=== PATIENT | male | born 1975 | race Caucasian/White ===

== ENCOUNTER 2017-02-25 23:28 | Emergency (ER) | payer BC ==
--- NOTE | 2017-02-25 23:39 | EDM.PDOC ---
ED HPI GENERAL MEDICAL PROBLEM - General Chief Complaint: Neurological Problem Stated Complaint: POSSIBLE STROKE OR SEIZURE Time Seen by Provider: 02/25/17 23:39 Source of Information: Reports: Patient - History of Present Illness INITIAL COMMENTS - FREE TEXT/NARRATIVE: HISTORY AND PHYSICAL: History of present illness: [] Patient presents by private vehicle with seizure-like activity Initially his called an ambulance, he declined ambulance and came as above Patient and his and went to sleep at approximately 9:30 tonight one to 2 hours later patient developed contracted appearance and was moaning with altered mental status consistent with seizure-like activity, ambulance arrived shortly after he was alert but somewhat disoriented consistent with a post ictal state. He refused to travel by ambulance and had his bring him in for evaluation On arrival he is ANO x3 [place] Coma Scale is 15 no fever nausea vomiting diarrhea constipation chest pain shortness breath headache dizziness or palpitation no bowel or urine symptoms No history of seizure disorder, he does have history of a Chiari malformation Review of systems: As per history of present illness and below otherwise all systems reviewed and negative. Past medical history: As per history of present illness and as reviewed below otherwise noncontributory. Surgical history: As per history of present illness and as reviewed below otherwise noncontributory. Social history: No reported history of drug or alcohol abuse. Family history: As per history of present illness and as reviewed below otherwise noncontributory. Physical exam: HEENT: Atraumatic, normocephalic, pupils reactive, negative for conjunctival pallor or scleral icterus, mucous membranes moist, throat clear, neck supple, nontender, trachea midline. Lungs: Clear to auscultation, breath sounds equal bilaterally, chest nontender. Heart: S1S2, regular, negative for clicks, rubs, or JVD. Abdomen: Soft, nondistended, nontender. Negative for masses or hepatosplenomegaly. Negative for costovertebral tenderness. Pelvis: Stable nontender. Genitourinary: Deferred. Rectal: Deferred. Extremities: Atraumatic, negative for cords or calf pain. Neurovascular unremarkable. Neuro: Awake, alert, oriented. Cranial nerves II through XII unremarkable. Cerebellum unremarkable. Motor and sensory unremarkable throughout. Exam nonfocal. Diagnostics: [] Lab as below EKG Chest one view Head CT no contrast Therapeutics: [] Liter normal saline bolus Ativan 1 mg IV provided for prophylaxis no active seizure while in the emergency room Impression: [] Seizure-like activity Definitive disposition and diagnosis as appropriate pending reevaluation and review of above. - Related Data Allergies Allergy/AdvReac Type Severity Reaction Status Date / Time No Known Allergies Allergy Verified 02/25/17 23:36 Home Meds: Home Meds Gabapentin [Neurontin] 300 mg PO BID 02/25/17 [History] ED ROS GENERAL - Review of Systems Review Of Systems: ROS reveals no pertinent complaints other than HPI. ED EXAM, GENERAL - Physical Exam Exam: See Below Course - Vital Signs Last Recorded V/S: Last Vital Signs Temp 36.5 C 02/26/17 02:21 Pulse 79 02/26/17 02:21 Resp 16 02/26/17 02:21 BP 128/86 02/26/17 02:21 Pulse Ox 95 02/26/17 02:21 - Orders/Labs/Meds Orders: Active Orders 24 hr Category Date Time Status EKG Documentation Completion [RC] STAT Care 02/25/17 23:37 Active Chest 1V Frontal [CR] Stat Exams 02/25/17 23:37 Taken Head wo Cont [CT] Stat Exams 02/25/17 23:37 Taken Sodium Chloride 0.9% [Normal Saline] 1,000 ml Med 02/26/17 01:40 Active IV STAT Medication Orders Sodium Chloride (Normal Saline) 1,000 mls @ 999 mls/hr IV STAT ONE Stop: 02/26/17 02:40 Last Admin: 02/26/17 01:41 Dose: 999 mls/hr Labs: Laboratory Tests 02/25/17 02/25/17 02/25/17 Range/Units 23:44 23:44 23:44 WBC 6.82 (4.0-11.0) K/uL RBC 4.67 (4.50-5.90) M/uL Hgb 15.0 (13.0-17.0) g/dL Hct 42.4 (38.0-50.0) % MCV 90.8 (80.0-98.0) fL MCH 32.1 H (27.0-32.0) pg MCHC 35.4 (31.0-37.0) g/dL RDW Std Deviation 41.3 (28.0-62.0) fl RDW Coeff of Vipin 13 (11.0-15.0) % Plt Count 283 (150-400) K/uL MPV 8.70 (7.40-12.00) fL Neut % (Auto) 43.2 L (48.0-80.0) % Lymph % (Auto) 45.5 H (16.0-40.0) % [place] % (Auto) 7.0 (0.0-15.0) % Eos % (Auto) 4.0 (0.0-7.0) % Baso % (Auto) 0.3 (0.0-1.5) % Neut # (Auto) 3.0 (1.4-5.7) K/uL Lymph # (Auto) 3.1 H (0.6-2.4) K/uL [place] # (Auto) 0.5 (0.0-0.8) K/uL Eos # (Auto) 0.3 (0.0-0.7) K/uL Baso # (Auto) 0.0 (0.0-0.1) K/uL Nucleated RBC % 0.0 /100WBC Nucleated RBCs # 0 K/uL Sodium 140 (136-146) mmol/L Potassium 3.7 (3.5-5.1) mmol/L Chloride 103 (98-110) mmol/L Carbon Dioxide 21 (21-31) mmol/L BUN 12 (6.0-23.0) mg/dL Creatinine 0.9 (0.6-1.5) mg/dL Est Cr Clr Drug Dosing 105.83 mL/min Estimated GFR (MDRD) > 60.0 ml/min Glucose 106 (60-110) mg/dL Calcium 9.2 (8.8-10.8) mg/dL Magnesium 1.7 (1.5-2.3) mEq/L Total Bilirubin 0.5 (0.1-1.5) mg/dL AST 19 (5-40) IU/L ALT 23 (8-54) IU/L Alkaline Phosphatase 59 (40-150) Creatine Kinase 120 (9-236) IU/L CK-MB (CK-2) 1.2 (0-6.6) ng/ml Troponin I < 0.10 (0.0-0.29) NG/ML Total Protein 6.5 (6.0-8.0) g/dL Albumin 4.5 (3.5-5.0) g/dL Globulin 2.0 (2.0-3.5) g/dL Albumin/Globulin Ratio 2.3 (1.3-2.8) TSH 3rd Generation 2.60 (0.47-5.0) uIU/mL Prolactin 37 H (1-23) ng/mL Urine Color Urine Appearance Urine pH (5.0-8.0) Ur Specific [place] (1.001-1.035) Urine Protein (NEGATIVE) mg/dL Urine Glucose (UA) (NEGATIVE) mg/dL Urine Ketones (NEGATIVE) mg/dL Urine Occult Blood (NEGATIVE) Urine Nitrite (NEGATIVE) Urine Bilirubin (NEGATIVE) Urine Urobilinogen (<2.0) EU/dL Ur Leukocyte Esterase (NEGATIVE) Urine RBC (0-2/HPF) Urine WBC (0-5/HPF) Ur Epithelial Cells (NONE-FEW) Urine Bacteria (NEGATIVE) Urine Opiates Screen (NEGATIVE) Ur Oxycodone Screen (NEGATIVE) Urine Methadone Screen (NEGATIVE) Ur Barbiturates Screen (NEGATIVE) Ur Phencyclidine Scrn (NEGATIVE) Ur Amphetamine Screen (NEGATIVE) U Methamphetamines Scrn (NEGATIVE) U Benzodiazepines Scrn (NEGATIVE) U Cocaine Metab Screen (NEGATIVE) U Marijuana (THC) Screen (NEGATIVE) Ethyl Alcohol < 10.0 mg/dL 02/26/17 02/26/17 Range/Units 02:20 02:20 WBC (4.0-11.0) K/uL RBC (4.50-5.90) M/uL Hgb (13.0-17.0) g/dL Hct (38.0-50.0) % MCV (80.0-98.0) fL MCH (27.0-32.0) pg MCHC (31.0-37.0) g/dL RDW Std Deviation (28.0-62.0) fl RDW Coeff of Vipin (11.0-15.0) % Plt Count (150-400) K/uL MPV (7.40-12.00) fL Neut % (Auto) (48.0-80.0) % Lymph % (Auto) (16.0-40.0) % [place] % (Auto) (0.0-15.0) % Eos % (Auto) (0.0-7.0) % Baso % (Auto) (0.0-1.5) % Neut # (Auto) (1.4-5.7) K/uL Lymph # (Auto) (0.6-2.4) K/uL [place] # (Auto) (0.0-0.8) K/uL Eos # (Auto) (0.0-0.7) K/uL Baso # (Auto) (0.0-0.1) K/uL Nucleated RBC % /100WBC Nucleated RBCs # K/uL Sodium (136-146) mmol/L Potassium (3.5-5.1) mmol/L Chloride (98-110) mmol/L Carbon Dioxide (21-31) mmol/L BUN (6.0-23.0) mg/dL Creatinine (0.6-1.5) mg/dL Est Cr Clr Drug Dosing mL/min Estimated GFR (MDRD) ml/min Glucose (60-110) mg/dL Calcium (8.8-10.8) mg/dL Magnesium (1.5-2.3) mEq/L Total Bilirubin (0.1-1.5) mg/dL AST (5-40) IU/L ALT (8-54) IU/L Alkaline Phosphatase (40-150) Creatine Kinase (9-236) IU/L CK-MB (CK-2) (0-6.6) ng/ml Troponin I (0.0-0.29) NG/ML Total Protein (6.0-8.0) g/dL Albumin (3.5-5.0) g/dL Globulin (2.0-3.5) g/dL Albumin/Globulin Ratio (1.3-2.8) TSH 3rd Generation (0.47-5.0) uIU/mL Prolactin (1-23) ng/mL Urine Color YELLOW Urine Appearance CLEAR Urine pH 5.5 (5.0-8.0) Ur Specific [place] 1.025 (1.001-1.035) Urine Protein NEGATIVE (NEGATIVE) mg/dL Urine Glucose (UA) NEGATIVE (NEGATIVE) mg/dL Urine Ketones 15 H (NEGATIVE) mg/dL Urine Occult Blood TRACE-INTACT (NEGATIVE) Urine Nitrite NEGATIVE (NEGATIVE) Urine Bilirubin SMALL H (NEGATIVE) Urine Urobilinogen 0.2 (<2.0) EU/dL Ur Leukocyte Esterase NEGATIVE (NEGATIVE) Urine RBC 0-1 (0-2/HPF) Urine WBC 0-1 (0-5/HPF) Ur Epithelial Cells RARE (NONE-FEW) Urine Bacteria FEW (NEGATIVE) Urine Opiates Screen NEGATIVE (NEGATIVE) Ur Oxycodone Screen NEGATIVE (NEGATIVE) Urine Methadone Screen NEGATIVE (NEGATIVE) Ur Barbiturates Screen NEGATIVE (NEGATIVE) Ur Phencyclidine Scrn NEGATIVE (NEGATIVE) Ur Amphetamine Screen NEGATIVE (NEGATIVE) U Methamphetamines Scrn NEGATIVE (NEGATIVE) U Benzodiazepines Scrn NEGATIVE (NEGATIVE) U Cocaine Metab Screen NEGATIVE (NEGATIVE) U Marijuana (THC) Screen NEGATIVE (NEGATIVE) Ethyl Alcohol mg/dL Meds: Medications Generic Name Dose Route Start Last Admin Trade Name Freq PRN Reason Stop Dose Admin Sodium Chloride 1,000 mls @ 999 mls/hr 02/26/17 01:40 02/26/17 01:41 Normal Saline IV 02/26/17 02:40 999 mls/hr STAT ONE Administration Discontinued Medications Generic Name Dose Route Start Last Admin Trade Name Freq PRN Reason Stop Dose Admin Diazepam 5 mg 02/25/17 23:38 02/26/17 00:06 Valium IVPUSH 02/25/17 23:39 Not Given ONETIME ONE Sodium Chloride 1,000 mls @ 999 mls/hr 02/26/17 00:36 02/26/17 00:53 Normal Saline IV 02/26/17 01:36 999 mls/hr STAT ONE Administration Ketorolac Tromethamine 30 mg 02/26/17 02:21 02/26/17 02:25 Toradol IVPUSH 02/26/17 02:22 30 mg ONETIME ONE Administration Lorazepam 1 mg 02/25/17 23:43 02/25/17 23:50 Ativan IVPUSH 02/25/17 23:44 1 mg ONETIME ONE Administration Departure - Departure Time of Disposition: 02:41 Disposition: Home, Self-Care 01 Condition: good Clinical Impression: Seizure-like activity - Discharge Information Forms: ED Department Discharge Additional Instructions: Return if symptoms persist or worsen Followup with primary care in 2 weeks sooner as needed Neurology consult referral will be provided from the [facility] [address] [place] [id number] The following information is given to patients seen in the emergency department who are being discharged to home. This information is to outline your options for follow-up care. We provide all patients seen in our emergency department with a follow-up referral. The need for follow-up, as well as the timing and circumstances, are variable depending upon the specifics of your emergency department visit. If you don't have a primary care physician on staff, we will provide you with a referral. We always advise you to contact your personal physician following an emergency department visit to inform them of the circumstance of the visit and for follow-up with them and/or the need for any referrals to a consulting specialist. The emergency department will also refer you to a specialist when appropriate. This referral assures that you have the opportunity for follow-up care with a specialist. All of these measure are taken in an effort to provide you with optimal care, which includes your follow-up. Under all circumstances we always encourage you to contact your private physician who remains a resource for coordinating your care. When calling for follow-up care, please make the office aware that this follow-up is from your recent emergency room visit. If for any reason you are refused follow-up, please contact the [facility] emergency department at and asked to speak to the emergency department charge nurse. - My Orders Last 24 Hours: My Active Orders 02/25/17 23:37 EKG Documentation Completion [RC] STAT Chest 1V Frontal [CR] Stat Head wo Cont [CT] Stat 02/26/17 01:40 Sodium Chloride 0.9% [Normal Saline] 1,000 ml IV STAT - Assessment/Plan Last 24 Hours: My Active Orders 02/25/17 23:37 EKG Documentation Completion [RC] STAT Chest 1V Frontal [CR] Stat Head wo Cont [CT] Stat 02/26/17 01:40 Sodium Chloride 0.9% [Normal Saline] 1,000 ml IV STAT
[2017-02-25] MEDS ORDERED: LORazepam 2 MG/ML MDV IVPUSH ONE (23:43)
[2017-02-26 00:33] LABS: CHLORIDE,CL 103 mmol/L (98-110); SODIUM,NA 140 mmol/L (136-146)
[2017-02-26] MEDS ORDERED: Sodium Chloride 0.9% 1,000 ML IV ONE ×2 (00:36→01:40)
[2017-02-26] MEDS ORDERED: Ketorolac 30 MG/ML SDV IVPUSH ONE (02:21)
[2017-02-26 03:04] VITALS: BP 120/70
--- NOTE | 2017-02-26 10:49 | CT ---
EXAM DATE: 02/25/17 PATIENT'S AGE: 41 Patient: MARA CHEUNG Facility: [place], [place] Site . Site : 1975 Study: CT Head WO CONT [id number] 12:13:51 AM Ordering Physician: Doctor Roth Final Report: INDICATION: SEIZURE AT 2250HRS TONIGHT FOR [address] HEAD WITHOUT CONTRAST TECHNIQUE: Multiple axial CT images were performed through the head without intravenous contrast administration. COMPARISON: 10/10/[address] FINDINGS: No acute intracranial hemorrhage is identified. No extra-axial collections are evident and there is no mass effect or midline shift. Ventricles are normal in size and configuration. Brain parenchyma appears normal with unremarkable gallo-white differentiation. Osseous structures are within normal limits and no fractures are seen. Included portions of the paranasal sinuses and mastoid air cells are normally aerated. IMPRESSION: Normal non-contrast head CT. JESSICA CALDERON MD [employer] Dictated by: Lincoln Calderon MD @ 02/26/2017 00:24:37 (Electronic Signature) Report Signed by Proxy. [facility]
--- NOTE | 2017-02-26 10:50 | CR ---
EXAM DATE: 02/25/17 PATIENT'S AGE: 41 Patient: MARA CHEUNG Facility: [place], [place] Site . Site : 1975 Study: XRay Chest [id number] 12:14:22 AM Ordering Physician: Doctor Roth Final Report: INDICATION: SEIZURE AT 2250HRS FOR APPROX. 1 MINUTE TECHNIQUE: Chest 1 view COMPARISON: None FINDINGS: Cardiovascular and mediastinum: Heart size and vasculature are normal in caliber and appearance. Mediastinum is within normal limits. Lungs and pleural space: No focal consolidation. No sign of pleural effusion. No pneumothorax. Bones and soft tissues: No significant findings. IMPRESSION: No acute cardiopulmonary disease. Dictated by Nagi Gutierrez MD @ 02/26/2017 12:20:09 AM Dictated by: Nagi Gutierrez MD @ 02/26/2017 00:20:30 (Electronic Signature) Report Signed by Proxy. [facility] SYSTEMJulissa
== END 2017-02-26 03:00 | disposition home or self-care (01) ==
LOC: MW.ED 23:28
DX: R56.9 Unspecified convulsions (principal)
CPT/HCPCS: 36415; 70450; 71010; 80053; 80305; 81001; 82550; 82553; 83735; 84146; 84443; 84484; 85025; 93005; 96361; 96374; 96375; 99285; G0480; J1885; J2060; J7040; 99284

== ENCOUNTER 2017-06-15 11:30 | Observation (INO) | payer BC ==
[2017-06-15] MEDS ORDERED: Sodium Chloride 0.9% 2.5 ML Syringe FLUSH PRN (11:43)
[2017-06-15] MEDS ORDERED: Famotidine 20 MG/2 ML SDV IVPUSH ONE (11:43)
[2017-06-15] MEDS ORDERED: Sodium Chloride 0.9% 10 ML Syringe FLUSH PRN (11:43)
[2017-06-15] MEDS ORDERED: Nitroglycerin 0.4 MG Tab.SL SL ONE (11:43)
[2017-06-15] MEDS ORDERED: Aspirin 81 MG Tab.Chew PO ONE (11:43)
[2017-06-15] MEDS ORDERED: Adenosine 6 MG/2 ML SDV IVPUSH ONE ×2 (11:47→13:27)
[2017-06-15] MEDS ORDERED: Adenosine 6 MG/2 ML SDV ONE (11:48)
[2017-06-15] MEDS ORDERED: Diltiazem 25 MG/5 ML SDV ONE (11:55)
[2017-06-15] MEDS ORDERED: LORazepam 2 MG/ML MDV ONE (11:59)
[2017-06-15] MEDS ORDERED: LORazepam 2 MG/ML MDV IVPUSH ONE (12:01)
--- NOTE | 2017-06-15 12:07 | EDM.PDOC ---
ED HPI GENERAL MEDICAL PROBLEM - General Chief Complaint: Chest Pain Stated Complaint: CHEST PAIN Time Seen by Provider: 06/15/17 12:03 Source of Information: Reports: Patient, Family History Limitations: Reports: No Limitations - History of Present Illness INITIAL COMMENTS - FREE TEXT/NARRATIVE: HISTORY AND PHYSICAL: [] 42-year-old male presenting with midsternal chest pain. 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 Review of Systems: As per history of present illness and below otherwise all systems reviewed and negative. Past medical history: As per history of present illness and as reviewed below otherwise noncontributory. Surgical history: As per history of present illness and as reviewed below otherwise noncontributory. Social history: No reported history of drug or alcohol abuse. Family history: As per history of present illness and as reviewed below otherwise noncontributory. Physical exam: Alert and oriented male answering questions appropriately somewhat short of breath. Initial EKG 79 normal sinus rhythm. Heart rate had increased showing a SVT with heart rate of 202. HEENT: Atraumatic, normocehpalic, pupils reactive, negative for conjunctival pallor or scleral icterus, mucous membranes moist, throat clear, neck supple, nontender, trachea midline. Lungs: Clear to auscultation, breath sounds equal bilaterally, chest non tender. Heart: S1S2, regular, negative for clicks, rubs, or JVD. Abdomen: Soft, nondistended, nontender. Negative for masses or hepatossplenmegaly. Negative for costovertebral tenderness. Pelvis: Stable nontender. Genitourinary: Deferred. Rectal: Deferred Extremities: Atraumatic, negative for cords or calf pain. Neurovascular unremarkable. Neuro: Awake, alert, oriented. Cranial nerves II through XII unremarkable. Cerebellum unremarkable. Motor and sensory unremarkable throughout. Exam nonfocal. Dr. Fowler has been notified and has examined the patient as well adenosine was given at 6 mL sinus pause and rate decreased to 80s 90s sinus rhythm. Then immediately spit back up to an SVT at 190. Additional adenosine 12 mL given. Slight sinus pause then returned to SVT 190s. Cardizem given IV 25 mg decreased to 85-90 sinus rhythm. Ativan 1 mg IV I discussed this patient with Dr. Emigdio Melgar who is in agreement for observation on telemetry. Diagnostics: [CBC CMP amylase lipase EKG chest x-ray] Therapeutics: [Adenosine 2, Cardizem 25 mg IV,] Impression: [SVT Chest pain] Plan: [Referred for observation] Definitive disposition and diagnosis as appropriate pending reevaluation and review of above. Onset: Today, Sudden Duration: Minutes: (45) Location: Reports: Chest Anterior Chest Pain Score (Numeric/FACES): 5 - Related Data Allergies Allergy/AdvReac Type Severity Reaction Status Date / Time No Known Allergies Allergy Verified 06/15/17 11:33 Home Meds: Home Meds Gabapentin [Neurontin] 600 mg PO TID 02/25/17 [History] Colesevelam [Welchol] PO BID 06/15/17 [History] Past Medical History - Past Health History Medical/Surgical History: Denies Medical/Surgical History HEENT History: Reports: None Respiratory History: Reports: Other (See Below) Other Respiratory History: insomnia Gastrointestinal History: Reports: Diverticulosis, Hemorrhoids Neurological History: Reports: Neuropathy, Peripheral - Past Surgical History HEENT Surgical History: Reports: None GI Surgical History: Reports: Hernia, Abdominal Social & Family History - Family History Family Medical History: Noncontributory - Tobacco Use Smoking Status *Q: Current Every Day Smoker Years of Tobacco use: 22 Packs/Tins Daily: 0.5 Tobacco Use Comment: on and off smoking - Caffeine Use Caffeine Use: Reports: Coffee Caffeine Use Comment: 3 cups daily - Recreational Drug Use Recreational Drug Use: No ED ROS GENERAL - Review of Systems Review Of Systems: ROS reveals no pertinent complaints other than HPI. ED EXAM, GENERAL - Physical Exam Exam: See Below (See dictation) Course - Vital Signs Last Recorded V/S: Last Vital Signs Temp 36.5 C 06/15/17 11:33 Pulse 208 H 06/15/17 11:48 Resp 16 06/15/17 11:33 BP 116/77 06/15/17 12:28 Pulse Ox 98 06/15/17 11:33 - Orders/Labs/Meds Orders: Active Orders 24 hr Category Date Time Status Cardiac Monitoring [RC] . DIRECTED Care 06/15/17 11:43 Active EKG 12 Lead [EKG Documentation Completion] [RC] STAT Care 06/15/17 12:06 Active EKG 12 Lead [EKG Documentation Completion] [RC] STAT Care 06/15/17 12:06 Active EKG Documentation Completion [RC] STAT Care 06/15/17 11:43 Active Oxygen Therapy [RC] ASDIRECTED Care 06/15/17 11:43 Active Pulse Oximetry [RC] ASDIRECTED Care 06/15/17 11:43 Active MAGNESIUM [CHEM] Stat Lab 06/15/17 12:39 Ordered T4 FREE [CHEM] Stat Lab 06/15/17 12:39 Ordered TSH [CHEM] Stat Lab 06/15/17 12:39 Ordered UA W/MICROSCOPIC [URIN] Stat Lab 06/15/17 12:35 Ordered Diltiazem [Cardizem CD] Med 06/15/17 12:39 Once 240 mg PO ONETIME ONE Sodium Chloride 0.9% [Saline Flush] Med 06/15/17 11:43 Active 10 ml FLUSH ASDIRECTED PRN Sodium Chloride 0.9% [Saline Flush] Med 06/15/17 11:43 Active 2.5 ml FLUSH ASDIRECTED PRN Saline Lock Insert [OM.PC] Stat Oth 06/15/17 11:43 Ordered Medication Orders Diltiazem HCl (Cardizem Cd) 240 mg PO ONETIME ONE Stop: 06/15/17 12:40 Sodium Chloride (Saline Flush) 10 ml FLUSH ASDIRECTED PRN PRN Reason: Keep Vein Open Last Admin: 06/15/17 12:27 Dose: 10 ml Sodium Chloride (Saline Flush) 2.5 ml FLUSH ASDIRECTED PRN PRN Reason: Keep Vein Open Last Admin: 06/15/17 12:27 Dose: 2.5 ml Labs: Laboratory Tests 06/15/17 06/15/17 06/15/17 Range/Units 11:48 11:48 11:48 WBC 8.64 (4.0-11.0) K/uL RBC 5.17 (4.50-5.90) M/uL Hgb 16.5 (13.0-17.0) g/dL Hct 46.5 (38.0-50.0) % MCV 89.9 (80.0-98.0) fL MCH 31.9 (27.0-32.0) pg MCHC 35.5 (31.0-37.0) g/dL RDW Std Deviation 43.9 (28.0-62.0) fl RDW Coeff of Vipin 13 (11.0-15.0) % Plt Count 268 (150-400) K/uL MPV 8.70 (7.40-12.00) fL Neut % (Auto) 61.1 (48.0-80.0) % Lymph % (Auto) 27.8 (16.0-40.0) % Churchill % (Auto) 9.0 (0.0-15.0) % Eos % (Auto) 1.9 (0.0-7.0) % Baso % (Auto) 0.2 (0.0-1.5) % Neut # (Auto) 5.3 (1.4-5.7) K/uL Lymph # (Auto) 2.4 (0.6-2.4) K/uL Churchill # (Auto) 0.8 (0.0-0.8) K/uL Eos # (Auto) 0.2 (0.0-0.7) K/uL Baso # (Auto) 0.0 (0.0-0.1) K/uL Nucleated RBC % 0.0 /100WBC Nucleated RBCs # 0 K/uL INR 0.92 (0.86-1.11) Sodium 141 (136-146) mmol/L Potassium 4.3 (3.5-5.1) mmol/L Chloride 107 (98-110) mmol/L Carbon Dioxide 22 (21-31) mmol/L BUN 19 (6.0-23.0) mg/dL Creatinine 0.9 (0.6-1.5) mg/dL Est Cr Clr Drug Dosing 104.74 mL/min Estimated GFR (MDRD) > 60.0 ml/min Glucose 96 (60-110) mg/dL Calcium 9.8 (8.8-10.8) mg/dL Total Bilirubin 0.4 (0.1-1.5) mg/dL AST 22 (5-40) IU/L ALT 44 (8-54) IU/L Alkaline Phosphatase 94 (40-150) Troponin I (0.0-0.29) NG/ML Total Protein 7.2 (6.0-8.0) g/dL Albumin 4.5 (3.5-5.0) g/dL Globulin 2.7 (2.0-3.5) g/dL Albumin/Globulin Ratio 1.7 (1.3-2.8) Amylase 65 (10-90) U/L Lipase 74 (7-80) U/L 06/15/17 Range/Units 11:48 WBC (4.0-11.0) K/uL RBC (4.50-5.90) M/uL Hgb (13.0-17.0) g/dL Hct (38.0-50.0) % MCV (80.0-98.0) fL MCH (27.0-32.0) pg MCHC (31.0-37.0) g/dL RDW Std Deviation (28.0-62.0) fl RDW Coeff of Vipin (11.0-15.0) % Plt Count (150-400) K/uL MPV (7.40-12.00) fL Neut % (Auto) (48.0-80.0) % Lymph % (Auto) (16.0-40.0) % Churchill % (Auto) (0.0-15.0) % Eos % (Auto) (0.0-7.0) % Baso % (Auto) (0.0-1.5) % Neut # (Auto) (1.4-5.7) K/uL Lymph # (Auto) (0.6-2.4) K/uL Churchill # (Auto) (0.0-0.8) K/uL Eos # (Auto) (0.0-0.7) K/uL Baso # (Auto) (0.0-0.1) K/uL Nucleated RBC % /100WBC Nucleated RBCs # K/uL INR (0.86-1.11) Sodium (136-146) mmol/L Potassium (3.5-5.1) mmol/L Chloride (98-110) mmol/L Carbon Dioxide (21-31) mmol/L BUN (6.0-23.0) mg/dL Creatinine (0.6-1.5) mg/dL Est Cr Clr Drug Dosing mL/min Estimated GFR (MDRD) ml/min Glucose (60-110) mg/dL Calcium (8.8-10.8) mg/dL Total Bilirubin (0.1-1.5) mg/dL AST (5-40) IU/L ALT (8-54) IU/L Alkaline Phosphatase (40-150) Troponin I < 0.10 (0.0-0.29) NG/ML Total Protein (6.0-8.0) g/dL Albumin (3.5-5.0) g/dL Globulin (2.0-3.5) g/dL Albumin/Globulin Ratio (1.3-2.8) Amylase (10-90) U/L Lipase (7-80) U/L Meds: Medications Generic Name Dose Route Start Last Admin Trade Name Freq PRN Reason Stop Dose Admin Diltiazem HCl 240 mg 06/15/17 12:39 Cardizem Cd PO 06/15/17 12:40 ONETIME ONE Sodium Chloride 10 ml 06/15/17 11:43 06/15/17 12:27 Saline Flush FLUSH 10 ml ASDIRECTED PRN Administration Keep Vein Open Sodium Chloride 2.5 ml 06/15/17 11:43 06/15/17 12:27 Saline Flush FLUSH 2.5 ml ASDIRECTED PRN Administration Keep Vein Open Discontinued Medications Generic Name Dose Route Start Last Admin Trade Name Freq PRN Reason Stop Dose Admin Adenosine 6 mg 06/15/17 11:47 06/15/17 12:28 Adenocard IVPUSH 06/15/17 11:48 6 mg NOW ONE Administration Adenosine Confirm 06/15/17 11:48 06/15/17 12:29 Adenocard Administered 06/15/17 11:49 12 mg Dose Administration 18 mg .ROUTE .STK-MED ONE Aspirin 324 mg 06/15/17 11:43 06/15/17 12:24 Aspirin PO 06/15/17 11:44 324 mg ONETIME ONE Administration Diltiazem HCl Confirm 06/15/17 11:55 06/15/17 12:29 Diltiazem Administered 06/15/17 11:56 25 mg Dose Administration 25 mg .ROUTE .STK-MED ONE Famotidine 20 mg 06/15/17 11:43 06/15/17 12:25 Pepcid IVPUSH 06/15/17 11:44 20 mg ONETIME ONE Administration Lorazepam Confirm 06/15/17 11:59 06/15/17 12:02 Ativan Administered 06/15/17 12:00 Not Given Dose 2 mg .ROUTE .STK-MED ONE Lorazepam 1 mg 06/15/17 12:01 06/15/17 12:30 Ativan IVPUSH 06/15/17 12:02 1 mg ONETIME ONE Administration Nitroglycerin 0.4 mg 06/15/17 11:43 06/15/17 12:28 Nitrostat SL 06/15/17 11:44 Not Given ONETIME ONE Departure - Departure Time of Disposition: 12:41 Disposition: Refer to Observation Condition: Good Clinical Impression: SVT (supraventricular tachycardia) Forms: ED Department Discharge - My Orders Last 24 Hours: My Active Orders 06/15/17 11:43 Cardiac Monitoring [RC] . DIRECTED EKG Documentation Completion [RC] STAT Oxygen Therapy [RC] ASDIRECTED Pulse Oximetry [RC] ASDIRECTED Sodium Chloride 0.9% [Saline Flush] 10 ml FLUSH ASDIRECTED PRN Sodium Chloride 0.9% [Saline Flush] 2.5 ml FLUSH ASDIRECTED PRN Saline Lock Insert [OM.PC] Stat 06/15/17 12:06 EKG 12 Lead [EKG Documentation Completion] [RC] STAT EKG 12 Lead [EKG Documentation Completion] [RC] STAT 06/15/17 12:35 UA W/MICROSCOPIC [URIN] Stat 06/15/17 12:39 MAGNESIUM [CHEM] Stat T4 FREE [CHEM] Stat TSH [CHEM] Stat - Assessment/Plan Last 24 Hours: My Active Orders 06/15/17 11:43 Cardiac Monitoring [RC] . DIRECTED EKG Documentation Completion [RC] STAT Oxygen Therapy [RC] ASDIRECTED Pulse Oximetry [RC] ASDIRECTED Sodium Chloride 0.9% [Saline Flush] 10 ml FLUSH ASDIRECTED PRN Sodium Chloride 0.9% [Saline Flush] 2.5 ml FLUSH ASDIRECTED PRN Saline Lock Insert [OM.PC] Stat 06/15/17 12:06 EKG 12 Lead [EKG Documentation Completion] [RC] STAT EKG 12 Lead [EKG Documentation Completion] [RC] STAT 06/15/17 12:35 UA W/MICROSCOPIC [URIN] Stat 06/15/17 12:39 MAGNESIUM [CHEM] Stat T4 FREE [CHEM] Stat TSH [CHEM] Stat
[2017-06-15 12:19] LABS: CHLORIDE,CL 107 mmol/L (98-110); SODIUM,NA 141 mmol/L (136-146)
--- NOTE | 2017-06-15 12:30 | CR ---
EXAMINATION: Portable chest radiograph. HISTORY: Chest pain. FINDINGS: The trachea is midline. The cardiomediastinal silhouette is within normal limits. No pulmonary infilt rates, effusions or pneumothorax. Osseous structures appear unremarkable. IMPRESSION: No acute cardiopulmonary process.
[2017-06-15] MEDS: Diltiazem 120 MG Cap.CD PO ONE ×2 (13:25→14:25)
[2017-06-15] MEDS ORDERED: Diltiazem 120 MG Cap.CD PO ONE (14:20)
[2017-06-15] MEDS ORDERED: Diltiazem 25 MG/5 ML SDV IVPUSH ONE (14:46)
[2017-06-15] MEDS ORDERED: Acetaminophen 325 MG Tab PO PRN (16:04)
[2017-06-15] MEDS ORDERED: Ondansetron 4 MG Tab.DIS PO PRN (16:04)
[2017-06-15] MEDS ORDERED: Morphine 2 MG/ML Syringe IVPUSH PRN (16:04)
[2017-06-15] MEDS ORDERED: Temazepam 15 MG Cap PO PRN (16:04)
[2017-06-15] MEDS ORDERED: Bisacodyl 5 MG Tab PO PRN (16:04)
--- NOTE | 2017-06-15 16:04 | PCM.HP ---
H&P History of Present Illness - General Date of Service: 06/15/17 Admit Problem/Dx: Admission Diagnosis/Problem Admission Diagnosis/Problem Chest pain Source of Information: Patient, Provider - History of Present Illness Initial Comments - Free Text/Narative: He presented to the ED with complaint of palpitations intermittently associated with chest pressure radiating to arms as well as dyspnea. He reports that this happens frequently but is usually of shorter duration such that he had not sought medical attention previously. Anterior Chest Pain Score (Numeric/FACES): 5 - Related Data Allergies/Adverse Reactions: Allergies Allergy/AdvReac Type Severity Reaction Status Date / Time No Known Allergies Allergy Verified 06/15/17 11:33 Home Medications: Home Meds Gabapentin [Neurontin] 600 mg PO TID 02/25/17 [History] Colesevelam [Welchol] PO BID 06/15/17 [History] Past Medical History - Past Health History Medical/Surgical History: Denies Medical/Surgical History HEENT History: Reports: None Cardiovascular History: Reports: High Cholesterol. Denies: CT Respiratory History: Reports: Other (See Below). Denies: COPD Other Respiratory History: insomnia Gastrointestinal History: Reports: Diverticulosis, Hemorrhoids Neurological History: Reports: Neuropathy, Peripheral Psychiatric History: Reports: Other (See Below) Other Psychiatric History: Hx: Insomnia - Infectious Disease History Infectious Disease History: Reports: Chicken Pox - Past Surgical History HEENT Surgical History: Reports: None GI Surgical History: Reports: Hernia, Abdominal, Other (See Below) (bowel resection for diverticulitis) Social & Family History - Family History Family Medical History: Noncontributory - Tobacco Use Smoking Status *Q: Current Every Day Smoker Years of Tobacco use: 22 Packs/Tins Daily: 0.5 Tobacco Use Comment: on and off smoking - Caffeine Use Caffeine Use: Reports: Coffee Caffeine Use Comment: 3 cups daily - Alcohol Use Alcohol Use Comment: he drinks one or two beers about one or two times per month. - Recreational Drug Use Recreational Drug Use: No H&P Review of Systems - Review of Systems: Review Of Systems: See Below General: Denies: Fever, Chills HEENT: Denies: Ear Pain Pulmonary: Reports: Shortness of Breath, Hemoptysis. Denies: Cough Gastrointestinal: Denies: Abdominal Pain, Black Stool, Bloody Stool, Hematemesis , Hematochezia, Melena Genitourinary: Denies: Dysuria, Hematuria Exam - Exam Exam: See Below - Vital Signs Vital Signs: Last Vital Signs Temp 98 F 06/15/17 13:49 Pulse 115 H 06/15/17 14:36 Resp 18 06/15/17 13:49 BP 115/64 06/15/17 14:36 Pulse Ox 98 06/15/17 13:49 Weight: 91.308 kg - Exam General: Alert, Oriented, Cooperative HEENT: Mucosa Moist & [place] Neck: Supple, Trachea Midline Lungs: Clear to Auscultation, Normal Respiratory Effort Cardiovascular: Regular Rate, Regular Rhythm, Tachycardia GI/Abdominal Exam: Soft, Non-Tender (Male) Exam: Deferred Rectal (Males) Exam: Deferred Neurological: Cranial Nerves Intact, Normal Speech Neuro Extensive - Mental Status: Normal Mood/Affect Psychiatric: No: Agitated - Patient Data Result Diagrams: 06/15/17 11:48 06/15/17 11:48 Imaging Impressions Last 24 hrs: EKG: SVT follow up EKG: sinus tachycardia *Q Meaningful Use (ADM) - VTE *Q VTE Criteria *Q: - Stroke *Q Stroke Criteria *Q: - AMI *Q AMI Criteria *Q: - Problem List (1) SVT (supraventricular tachycardia) SNOMED Code(s): 9722290 ICD Code: I47.1 - SUPRAVENTRICULAR TACHYCARDIA Status: Acute Current Visit: Yes Problem List Initiated/Reviewed/Updated: Yes Orders Last 24hrs: Active Orders 24 hr Category Date Time Status Patient Status [ADT] Stat ADT 06/15/17 13:04 Active Medication Orders Sodium Chloride (Saline Flush) 10 ml FLUSH ASDIRECTED PRN PRN Reason: Keep Vein Open Last Admin: 06/15/17 12:27 Dose: 10 ml Sodium Chloride (Saline Flush) 2.5 ml FLUSH ASDIRECTED PRN PRN Reason: Keep Vein Open Last Admin: 06/15/17 12:27 Dose: 2.5 ml Assessment/Plan Comment:: admit to observation see orders Emigdio Melgar MD
[2017-06-15] MEDS ORDERED: Nicotine 21 MG/24 Hr Patch TRDERM SCH (18:30)
[2017-06-15] MEDS: Nicotine 21 MG/24 Hr Patch TRDERM SCH (19:12)
[2017-06-15] MEDS: Metoprolol Tartrate 5 MG/5 ML SDV IVPUSH PRN (22:26)
[2017-06-15] MEDS: Gabapentin 300 MG Cap PO SCH (22:26)
[2017-06-16 05:50] LABS: CHLORIDE,CL 107 mmol/L (98-110); SODIUM,NA 141 mmol/L (136-146)
[2017-06-16] MEDS: Gabapentin 300 MG Cap PO SCH ×3 (06:36→21:08)
[2017-06-16] MEDS ORDERED: Diltiazem 120 MG Cap.CD PO SCH (09:00)
[2017-06-16] MEDS: Nicotine 21 MG/24 Hr Patch TRDERM SCH (09:20)
[2017-06-16] MEDS: Enoxaparin 40 MG/0.4 ML Syringe SUBCUT SCH (09:28)
--- NOTE | 2017-06-16 14:30 | PCM.PN ---
- General Info Date of Service: 06/16/17 Subjective Update: He feels better. He reports that he has a prior history of seizures and his last one was several years ago. He also has a history of chiari malformation. - Patient Data Vitals - Most Recent: Last Vital Signs Temp 99.0 F 06/16/17 11:40 Pulse 63 06/16/17 11:40 Resp 18 06/16/17 11:40 BP 117/72 06/16/17 11:40 Pulse Ox 93 L 06/16/17 11:40 Weight - Most Recent: 91.308 kg I&O - Last 24 Hours: Intake & Output 06/15/17 06/16/17 06/16/17 22:59 06:59 14:59 Intake Total 700 480 Balance 700 480 Lab Results Last 24 Hours: Laboratory Results - last 24 hr 06/15/17 06/16/17 06/16/17 Range/Units 18:27 00:15 05:10 Sodium 141 (136-146) mmol/L Potassium 4.5 (3.5-5.1) mmol/L Chloride 107 (98-110) mmol/L Carbon Dioxide 25 (21-31) mmol/L BUN 18 (6.0-23.0) mg/dL Creatinine 0.8 (0.6-1.5) mg/dL Est Cr Clr Drug Dosing 117.83 mL/min Estimated GFR (MDRD) > 60.0 ml/min Glucose 96 (60-110) mg/dL Calcium 9.5 (8.8-10.8) mg/dL Troponin I 0.19 0.11 (0.0-0.29) NG/ML Med Orders - Current: Current Medications Acetaminophen (Tylenol) 650 mg PO Q4H PRN PRN Reason: Pain (Mild 1-3)/fever Bisacodyl (Dulcolax) 5 mg PO DAILY PRN PRN Reason: Constipation Diltiazem HCl (Cardizem Cd) 240 mg PO DAILY [facility] Last Admin: 06/16/17 09:21 Dose: 240 mg Enoxaparin Sodium (Lovenox) 40 mg SUBCUT DAILY [facility] Last Admin: 06/16/17 09:28 Dose: 40 mg Gabapentin (Neurontin) 600 mg PO TID [facility] Last Admin: 06/16/17 13:54 Dose: 600 mg Metoprolol Tartrate (Lopressor) 5 mg IVPUSH Q4H PRN PRN Reason: Other Last Admin: 06/15/17 22:26 Dose: 5 mg Morphine Sulfate (Morphine) 2 mg IVPUSH Q2H PRN PRN Reason: Pain (severe 7-10) Stop: 06/16/17 16:06 Nicotine (Habitrol) 21 mg TRDERM DAILY [facility] Last Admin: 06/16/17 09:20 Dose: 21 mg Ondansetron HCl (Zofran Odt) 4 mg PO Q4H PRN PRN Reason: nausea, able to take PO Sodium Chloride (Saline Flush) 10 ml FLUSH ASDIRECTED PRN PRN Reason: Keep Vein Open Last Admin: 06/15/17 12:27 Dose: 10 ml Sodium Chloride (Saline Flush) 2.5 ml FLUSH ASDIRECTED PRN PRN Reason: Keep Vein Open Last Admin: 06/15/17 12:27 Dose: 2.5 ml Temazepam (Restoril) 15 mg PO BEDTIME PRN PRN Reason: Sleep Discontinued Medications Adenosine (Adenocard) 6 mg IVPUSH NOW ONE Stop: 06/15/17 11:48 Last Admin: 06/15/17 12:28 Dose: 6 mg Adenosine (Adenocard) Confirm Administered Dose 18 mg .ROUTE .STK-MED ONE Stop: 06/15/17 11:49 Last Admin: 06/15/17 12:29 Dose: 12 mg Adenosine (Adenocard) 12 mg IVPUSH NOW ONE Stop: 06/15/17 13:28 Last Admin: 06/15/17 13:28 Dose: 12 mg Aspirin (Aspirin) 324 mg PO ONETIME ONE Stop: 06/15/17 11:44 Last Admin: 06/15/17 12:24 Dose: 324 mg Diltiazem HCl (Diltiazem) Confirm Administered Dose 25 mg .ROUTE .STK-MED ONE Stop: 06/15/17 11:56 Last Admin: 06/15/17 12:29 Dose: 25 mg Diltiazem HCl (Cardizem Cd) 240 mg PO ONETIME ONE Stop: 06/15/17 12:40 Last Admin: 06/15/17 14:25 Dose: Not Given Diltiazem HCl (Cardizem Cd) 240 mg PO ONETIME ONE Stop: 06/15/17 14:21 Last Admin: 06/15/17 14:36 Dose: 240 mg Diltiazem HCl (Diltiazem) 25 mg IVPUSH ONETIME ONE Stop: 06/15/17 14:47 Last Admin: 06/15/17 14:48 Dose: 25 mg Famotidine (Pepcid) 20 mg IVPUSH ONETIME ONE Stop: 06/15/17 11:44 Last Admin: 06/15/17 12:25 Dose: 20 mg Lorazepam (Ativan) Confirm Administered Dose 2 mg .ROUTE .STK-MED ONE Stop: 06/15/17 12:00 Last Admin: 06/15/17 12:02 Dose: Not Given Lorazepam (Ativan) 1 mg IVPUSH ONETIME ONE Stop: 06/15/17 12:02 Last Admin: 06/15/17 12:30 Dose: 1 mg Nicotine (Habitrol) 21 mg TRDERM DAILY [facility] Last Admin: 06/15/17 20:19 Dose: Not Given Nitroglycerin (Nitrostat) 0.4 mg SL ONETIME ONE Stop: 06/15/17 11:44 Last Admin: 06/15/17 12:28 Dose: Not Given - Exam General: Alert, Oriented, Cooperative Neck: Trachea Midline Lungs: Clear to Auscultation, Normal Respiratory Effort Cardiovascular: Regular Rate, Regular Rhythm - Problem List & Annotations (1) SVT (supraventricular tachycardia) SNOMED Code(s): 7477510 Code(s): I47.1 - SUPRAVENTRICULAR TACHYCARDIA Status: Acute Current Visit : Yes - Problem List Review Problem List Initiated/Reviewed/Updated: Yes - My Orders Last 24 Hours: My Active Orders 06/15/17 13:43 Telemetry Monitoring [Cardiac Monitoring] [RC] Q8H 06/15/17 16:04 Acetaminophen [Tylenol] 650 mg PO Q4H PRN Bisacodyl [Dulcolax] 5 mg PO DAILY PRN Metoprolol Tartrate [Lopressor] 5 mg IVPUSH Q4H PRN Morphine 2 mg IVPUSH Q2H PRN Ondansetron [Zofran ODT] 4 mg PO Q4H PRN Temazepam [Restoril] 15 mg PO BEDTIME PRN Resuscitation Status Routine 06/15/17 16:05 Oxygen Therapy [RC] PRN VTE/DVT Education [RC] PER UNIT ROUTINE Vital Signs [RC] Q4H 06/15/17 19:00 Nicotine [Habitrol] 21 mg TRDERM DAILY 06/15/17 22:00 Gabapentin [Neurontin] 600 mg PO TID 06/15/17 Dinner Regular Diet [DIET] 06/16/17 07:00 Echo Comp wo Cont [US] Urgent 06/16/17 09:00 Diltiazem [Cardizem CD] 240 mg PO DAILY Enoxaparin [Lovenox] 40 mg SUBCUT DAILY 06/16/17 12:58 EKG 12 Lead [EKG Documentation Completion] [RC] ROUTINE - Plan Plan:: admit to observation see orders Emigdio Melgar MD 06/16/2017 He has had periods of sinus tachycardia and has some brief episodes of Mobitz type two second degree heart block on the monitor noted last night apparently this was asymtomatic EKG toda shows NSR He has an appointment planned as an outpatient with DR Nayak, neurology Impression I am concerned about a possible tachy/ low syndomre Will seek cardiology consultation echo results pending Emigdio Melgar MD
--- NOTE | 2017-06-16 15:51 | PCM.SN ---
- Free Text/Narrative Note: I spoke with Dr Costa, cardiology, who kindly agreed to consult on this patient. Emigdio Melgar MD
--- NOTE | 2017-06-16 18:13 | PCM.DCSUM1 ---
Discharge Summary - Hospital Course Brief History: He was admitted with SVT . - Discharge Data Discharge Date: 06/16/17 Discharge Disposition: Home, Self-Care 01 Condition: Fair - Discharge Diagnosis/Problem(s) (1) SVT (supraventricular tachycardia) SNOMED Code(s): 5884967 ICD Code: I47.1 - SUPRAVENTRICULAR TACHYCARDIA Status: Acute Current Visit: Yes - Patient Summary/Data Consults: Consultations 06/16/17 14:30 Consult to Physician [CONS] Urgent Hospital Course: He was treated initially in the ED with adenocard. This reportedly was not helpful. He was successfully treated with cardizem IV. HE was started on Cardizem CD. He converted to sinus rhythm. However, on monitoring it was noted that he had periods of atrial flutter with variable block. He has symptoms of palpitations with the atrial flutter even when the ventricular rate is controlled. Dr Costa, cardiology, saw the patient. Echocardiogram was performed but final written results are pending at discharge. Dr Costa spoke with me about the patient and recommended discharge on cardizem and aspirin. I have had a lengthy discussion with the patient and his regarding his diagnosis. Impression: atrial flutter history of seizure disorder history of chiari malformation discharge home off work until Thursday follow up is planned with DR Costa , Dr Graff and with DR Bowman. Emigdio Melgar MD - Discharge Plan Home Medications: Home Meds Gabapentin [Neurontin] 600 mg PO TID 02/25/17 [History] Colesevelam [Welchol] PO BID 06/15/17 [History] Forms: ED Department Discharge Referrals: Mena Bowman MD [Physician] - 07/16/17 2:00 pm Katelyn Abbasi DO [Primary Care Provider] - - Patient Data Vitals - Most Recent: Last Vital Signs Temp 98.2 F 06/16/17 16:01 Pulse 73 06/16/17 16:01 Resp 20 06/16/17 16:01 BP 119/68 06/16/17 16:01 Pulse Ox 95 06/16/17 16:01 Weight - Most Recent: 91.308 kg I&O - Last 24 hours: Intake & Output 06/16/17 06/16/17 06/16/17 06:59 14:59 22:59 Intake Total 700 480 Balance 700 480 Lab Results - Last 24 hrs: Laboratory Results - last 24 hr 06/15/17 06/16/17 06/16/17 Range/Units 18:27 00:15 05:10 Sodium 141 (136-146) mmol/L Potassium 4.5 (3.5-5.1) mmol/L Chloride 107 (98-110) mmol/L Carbon Dioxide 25 (21-31) mmol/L BUN 18 (6.0-23.0) mg/dL Creatinine 0.8 (0.6-1.5) mg/dL Est Cr Clr Drug Dosing 117.83 mL/min Estimated GFR (MDRD) > 60.0 ml/min Glucose 96 (60-110) mg/dL Calcium 9.5 (8.8-10.8) mg/dL Troponin I 0.19 0.11 (0.0-0.29) NG/ML Med Orders - Current: Current Medications Acetaminophen (Tylenol) 650 mg PO Q4H PRN PRN Reason: Pain (Mild 1-3)/fever Bisacodyl (Dulcolax) 5 mg PO DAILY PRN PRN Reason: Constipation Diltiazem HCl (Cardizem Cd) 240 mg PO DAILY [facility] Last Admin: 06/16/17 09:21 Dose: 240 mg Enoxaparin Sodium (Lovenox) 40 mg SUBCUT DAILY [facility] Last Admin: 06/16/17 09:28 Dose: 40 mg Gabapentin (Neurontin) 600 mg PO TID [facility] Last Admin: 06/16/17 13:54 Dose: 600 mg Metoprolol Tartrate (Lopressor) 5 mg IVPUSH Q4H PRN PRN Reason: Other Last Admin: 06/15/17 22:26 Dose: 5 mg Nicotine (Habitrol) 21 mg TRDERM DAILY [facility] Last Admin: 06/16/17 09:20 Dose: 21 mg Ondansetron HCl (Zofran Odt) 4 mg PO Q4H PRN PRN Reason: nausea, able to take PO Sodium Chloride (Saline Flush) 10 ml FLUSH ASDIRECTED PRN PRN Reason: Keep Vein Open Last Admin: 06/15/17 12:27 Dose: 10 ml Sodium Chloride (Saline Flush) 2.5 ml FLUSH ASDIRECTED PRN PRN Reason: Keep Vein Open Last Admin: 06/15/17 12:27 Dose: 2.5 ml Temazepam (Restoril) 15 mg PO BEDTIME PRN PRN Reason: Sleep Discontinued Medications Adenosine (Adenocard) 6 mg IVPUSH NOW ONE Stop: 06/15/17 11:48 Last Admin: 06/15/17 12:28 Dose: 6 mg Adenosine (Adenocard) Confirm Administered Dose 18 mg .ROUTE .STK-MED ONE Stop: 06/15/17 11:49 Last Admin: 06/15/17 12:29 Dose: 12 mg Adenosine (Adenocard) 12 mg IVPUSH NOW ONE Stop: 06/15/17 13:28 Last Admin: 06/15/17 13:28 Dose: 12 mg Aspirin (Aspirin) 324 mg PO ONETIME ONE Stop: 06/15/17 11:44 Last Admin: 06/15/17 12:24 Dose: 324 mg Diltiazem HCl (Diltiazem) Confirm Administered Dose 25 mg .ROUTE .STK-MED ONE Stop: 06/15/17 11:56 Last Admin: 06/15/17 12:29 Dose: 25 mg Diltiazem HCl (Cardizem Cd) 240 mg PO ONETIME ONE Stop: 06/15/17 12:40 Last Admin: 06/15/17 14:25 Dose: Not Given Diltiazem HCl (Cardizem Cd) 240 mg PO ONETIME ONE Stop: 06/15/17 14:21 Last Admin: 06/15/17 14:36 Dose: 240 mg Diltiazem HCl (Diltiazem) 25 mg IVPUSH ONETIME ONE Stop: 06/15/17 14:47 Last Admin: 06/15/17 14:48 Dose: 25 mg Famotidine (Pepcid) 20 mg IVPUSH ONETIME ONE Stop: 06/15/17 11:44 Last Admin: 06/15/17 12:25 Dose: 20 mg Lorazepam (Ativan) Confirm Administered Dose 2 mg .ROUTE .STK-MED ONE Stop: 06/15/17 12:00 Last Admin: 06/15/17 12:02 Dose: Not Given Lorazepam (Ativan) 1 mg IVPUSH ONETIME ONE Stop: 06/15/17 12:02 Last Admin: 06/15/17 12:30 Dose: 1 mg Morphine Sulfate (Morphine) 2 mg IVPUSH Q2H PRN PRN Reason: Pain (severe 7-10) Stop: 06/16/17 16:06 Nicotine (Habitrol) 21 mg TRDERM DAILY [facility] Last Admin: 06/15/17 20:19 Dose: Not Given Nitroglycerin (Nitrostat) 0.4 mg SL ONETIME ONE Stop: 06/15/17 11:44 Last Admin: 06/15/17 12:28 Dose: Not Given *Q Meaningful Use (DIS) - VTE *Q VTE Criteria *Q: - Stroke *Q Stroke Criteria *Q: - AMI *Q AMI Criteria *Q:
[2017-06-16] MEDS ORDERED: Diltiazem 180 MG Cap.CD PO ONE (18:30)
[2017-06-17] MEDS: Metoprolol Tartrate 5 MG/5 ML SDV IVPUSH PRN ×2 (05:02→09:02)
[2017-06-17] MEDS: Gabapentin 300 MG Cap PO SCH ×3 (05:06→21:19)
[2017-06-17] MEDS: Diltiazem 120 MG Cap.CD PO SCH (08:12)
[2017-06-17] MEDS: Enoxaparin 40 MG/0.4 ML Syringe SUBCUT SCH (08:13)
[2017-06-17] MEDS: Nicotine 21 MG/24 Hr Patch TRDERM SCH (08:14)
[2017-06-17] MEDS ORDERED: Metoprolol Succinate 50 MG Tab.ER PO ONE (09:04)
--- NOTE | 2017-06-17 10:03 | CONS ---
DATE OF CONSULTATION: DATE OF : 1975 PRIMARY CARE PHYSICIAN: Katelyn Abbasi DO REASON FOR CONSULTATION: Tachycardia. HISTORY OF PRESENT ILLNESS: This is a 42-year-old male, history of hearing malformation, history of hyperlipidemia and current smoker presented to the hospital at this time due to palpitation and chest pain. He has been in his usual state of health until at work when he was stating he started feeling palpitation, heart racing as well as chest pressure. He felt a pressure in his left-sided chest wall that radiated to both of his arms. He rated the chest pain as 6 from 10 pain scale. It was a pressure with feeling dizzy and tired and then he drove himself to the emergency room. He was found to have a tachycardia with a heart rate of 202. He was given the adenosine 6, followed by 12 and 12. He was not converted to sinus rhythm. Therefore, subsequently, he was given the Cardizem 20 IV. Then he was converted to sinus rhythm later on. He was admitted in the hospital for observation and he is still having intermittent tachycardia that seemed to be atrial flutter with varying AV block and Cardizem 240 was started. He also supposed to see Neurology regarding a spot in his frontal lobe on MRI as well as the Chiari malformation, question in the frontal lobe is a stroke or not, but he denied history of focal weakness on one side, slurred speech and he never been diagnosed with a stroke. However, he has seen neurologist in [place] as well as [place]. It was not conclusive that like patient has the history of stroke or not and that regarding his heart, he never had a heart failure, hypertension, diabetes. He felt pretty physical and he did not have any trouble doing his job and he also using CPAP, however, has not been adjusted and his noticed that like he sometimes stops breathing at night. No leg swelling. No orthopnea. No PND. REVIEW OF SYSTEMS: Has been negative except indicated in the HPI. PAST MEDICAL HISTORY: Chiari malformation. CURRENT MEDICATION: Cardizem 240. ALLERGIES: No known drug allergies. FAMILY HISTORY: His father had a history of heart problem. His mother had a history of heart problem. SOCIAL HISTORY: He smokes half a pack per day. Occasional drinking and no drug use. PHYSICAL EXAMINATION: VITAL SIGNS: Initial blood pressure is 133/83 and then current blood pressure is 106/69. Initial heart rate is 81, current heart rate is 80 to 100 with intermittent tachycardia. O2 saturation is 97% on room air. Temperature is 36.4, respirations 18. HEENT: Not pallor. No jaundice. No JVD. HEART: Normal S1, S2. No murmur. LUNGS: Clear. ABDOMEN: Soft, nontender. Bowel sounds are present. No hepatosplenomegaly. EXTREMITIES: Legs, no edema. LABORATORY INVESTIGATION: EKG on June 15, 2017, showed tachycardia with a heart rate of 202 and also EKG on June 15 at 11 a.m. showed sinus rhythm, heart rate of 79, MT interval 138, QRS duration 96, QTc 425. On the telemetry, intermittent tachycardia that showed 2:1 block with a heart rate of 130 to 150s. ASSESSMENT AND PLAN: This is a 42-year-old male with a history of Chiari malformation as well as neuropathy presented to the hospital with palpitation with chest pain with tachycardia, seemed to be atrial flutter. On EKG when he was in tachycardia, heart rate of 202. He has ST-depression in inferior lead II, III, aVF as well as V4 to V6 and he also had a chest pressure when he has a tachycardia. He should get a stress test as well as anticoagulation. His CHADS-VASc score is 0 and I would recommend him to take aspirin. He stated that he used to take baby aspirin before even though that he was diagnosed with the Chiari malformation. His neurologist recommended him to take it but for some reason, he stopped taking it so far. However, there is questionable despite in his frontal lobe that could or could not be the previous stroke. If it was a stroke he would need a Coumadin. However, the patient will be seen by neurologist and I would like to get opinion from her about the spot in the frontal lobe and imaging probably need to be repeated, but I will defer to neurologist and I would recommend to continue the Cardizem 240 and then the patient should be able to go home with stable vital signs and I will schedule for exercise nuclear as an outpatient and his echocardiogram showed preserved ejection fraction. It showed mild AR and also his CPAP machine need to be readjusted with repeat sleep study. JULIA SINGH /[id number]
--- NOTE | 2017-06-17 10:15 | PCM.SN ---
- Free Text/Narrative Note: He had a brief episode of increased heart rate before planned discharge last pm. Therefore, his discharge was cancelled and his cardizem CD dose was increased. This am he received lopressor 5 mg IV x 2 with temporary improvement in heart rate. I discussed the case today with DR Costa who will see the patient today Emigdio Melgar MD
[2017-06-17] MEDS: Digoxin 500 MCG/2 ML Amp IVPUSH SCH ×4 (11:49→17:43)
--- NOTE | 2017-06-17 13:43 | PCM.PN ---
- General Info Date of Service: 06/17/17 Subjective Update: He has intermittent periods of tachycardia this morning with monitor showing atrial flutter with variable conduction. HE feels periods of palpitations and light headedness. - Patient Data Vitals - Most Recent: Last Vital Signs Temp 98.9 F 06/17/17 08:00 Pulse 69 06/17/17 12:00 Resp 18 06/17/17 09:22 BP 124/73 06/17/17 09:57 Pulse Ox 97 06/17/17 09:22 Weight - Most Recent: 91.308 kg I&O - Last 24 Hours: Intake & Output 06/16/17 06/17/17 06/17/17 22:59 06:59 14:59 Intake Total 680 Output Total 720 Balance -40 Med Orders - Current: Current Medications Acetaminophen (Tylenol) 650 mg PO Q4H PRN PRN Reason: Pain (Mild 1-3)/fever Bisacodyl (Dulcolax) 5 mg PO DAILY PRN PRN Reason: Constipation Digoxin (Lanoxin) 250 mcg IVPUSH Q2H [facility] Stop: 06/17/17 17:16 Last Admin: 06/17/17 11:49 Dose: 250 mcg Digoxin (Lanoxin) 250 mcg PO DAILY [facility] Diltiazem HCl (Cardizem Cd) 360 mg PO DAILY [facility] Last Admin: 06/17/17 08:12 Dose: 360 mg Enoxaparin Sodium (Lovenox) 40 mg SUBCUT DAILY [facility] Last Admin: 06/17/17 08:13 Dose: 40 mg Gabapentin (Neurontin) 600 mg PO TID [facility] Last Admin: 06/17/17 05:06 Dose: 600 mg Metoprolol Tartrate (Lopressor) 5 mg IVPUSH Q4H PRN PRN Reason: Other Last Admin: 06/17/17 09:02 Dose: 5 mg Nicotine (Habitrol) 21 mg TRDERM DAILY [facility] Last Admin: 06/17/17 08:14 Dose: 21 mg Ondansetron HCl (Zofran Odt) 4 mg PO Q4H PRN PRN Reason: nausea, able to take PO Sodium Chloride (Saline Flush) 10 ml FLUSH ASDIRECTED PRN PRN Reason: Keep Vein Open Last Admin: 06/15/17 12:27 Dose: 10 ml Sodium Chloride (Saline Flush) 2.5 ml FLUSH ASDIRECTED PRN PRN Reason: Keep Vein Open Last Admin: 06/15/17 12:27 Dose: 2.5 ml Temazepam (Restoril) 15 mg PO BEDTIME PRN PRN Reason: Sleep Discontinued Medications Adenosine (Adenocard) 6 mg IVPUSH NOW ONE Stop: 06/15/17 11:48 Last Admin: 06/15/17 12:28 Dose: 6 mg Adenosine (Adenocard) Confirm Administered Dose 18 mg .ROUTE .STK-MED ONE Stop: 06/15/17 11:49 Last Admin: 06/15/17 12:29 Dose: 12 mg Adenosine (Adenocard) 12 mg IVPUSH NOW ONE Stop: 06/15/17 13:28 Last Admin: 06/15/17 13:28 Dose: 12 mg Aspirin (Aspirin) 324 mg PO ONETIME ONE Stop: 06/15/17 11:44 Last Admin: 06/15/17 12:24 Dose: 324 mg Diltiazem HCl (Diltiazem) Confirm Administered Dose 25 mg .ROUTE .STK-MED ONE Stop: 06/15/17 11:56 Last Admin: 06/15/17 12:29 Dose: 25 mg Diltiazem HCl (Cardizem Cd) 240 mg PO ONETIME ONE Stop: 06/15/17 12:40 Last Admin: 06/15/17 14:25 Dose: Not Given Diltiazem HCl (Cardizem Cd) 240 mg PO ONETIME ONE Stop: 06/15/17 14:21 Last Admin: 06/15/17 14:36 Dose: 240 mg Diltiazem HCl (Diltiazem) 25 mg IVPUSH ONETIME ONE Stop: 06/15/17 14:47 Last Admin: 06/15/17 14:48 Dose: 25 mg Diltiazem HCl (Cardizem Cd) 240 mg PO DAILY [facility] Last Admin: 06/16/17 09:21 Dose: 240 mg Diltiazem HCl (Cardizem Cd) 180 mg PO ONETIME ONE Stop: 06/16/17 18:31 Last Admin: 06/16/17 18:42 Dose: 180 mg Famotidine (Pepcid) 20 mg IVPUSH ONETIME ONE Stop: 06/15/17 11:44 Last Admin: 06/15/17 12:25 Dose: 20 mg Lorazepam (Ativan) Confirm Administered Dose 2 mg .ROUTE .STK-MED ONE Stop: 06/15/17 12:00 Last Admin: 06/15/17 12:02 Dose: Not Given Lorazepam (Ativan) 1 mg IVPUSH ONETIME ONE Stop: 06/15/17 12:02 Last Admin: 06/15/17 12:30 Dose: 1 mg Metoprolol Succinate (Toprol Xl) 50 mg PO ONETIME ONE Stop: 06/17/17 09:05 Last Admin: 06/17/17 09:57 Dose: 50 mg Morphine Sulfate (Morphine) 2 mg IVPUSH Q2H PRN PRN Reason: Pain (severe 7-10) Stop: 06/16/17 16:06 Nicotine (Habitrol) 21 mg TRDERM DAILY [facility] Last Admin: 06/15/17 20:19 Dose: Not Given Nitroglycerin (Nitrostat) 0.4 mg SL ONETIME ONE Stop: 06/15/17 11:44 Last Admin: 06/15/17 12:28 Dose: Not Given - Exam General: Alert, Oriented Lungs: Normal Respiratory Effort Cardiovascular: Regular Rate, Regular Rhythm Psy/Mental Status: Alert, Normal Affect, Normal Mood. No: Agitated - Problem List & Annotations (1) SVT (supraventricular tachycardia) SNOMED Code(s): 7897702 Code(s): I47.1 - SUPRAVENTRICULAR TACHYCARDIA Status: Acute Current Visit : Yes (2) History of seizures SNOMED Code(s): 173029901 Code(s): Z87.898 - PERSONAL HISTORY OF OTHER SPECIFIED CONDITIONS Status: Acute Current Visit: Yes (3) History of Chiari malformation SNOMED Code(s): 689670759, 922683000 Code(s): Z86.69 - PERSONAL HISTORY OF DIS OF THE NERVOUS SYS AND SENSE ORGANS Status: Acute Current Visit: Yes - Problem List Review Problem List Initiated/Reviewed/Updated: Yes - My Orders Last 24 Hours: My Active Orders 06/16/17 14:30 Consult to Physician [CONS] Urgent 06/16/17 14:31 Notify Provider Consults [RC] ASDIRECTED 06/16/17 18:16 Ready for Discharge [RC] PER UNIT ROUTINE 06/17/17 09:00 Diltiazem [Cardizem CD] 360 mg PO DAILY 06/17/17 13:16 Communication Order [RC] ROUTINE - Plan Plan:: admit to observation see orders Emigdio Melgar MD 06/16/2017 He has had periods of sinus tachycardia and has some brief episodes of Mobitz type two second degree heart block on the monitor noted last night apparently this was asymtomatic EKG toda shows NSR He has an appointment planned as an outpatient with DR Nayak, neurology Impression I am concerned about a possible tachy/ low syndomre Will seek cardiology consultation echo results pending Emigdio Melgar MD 06/17/2017: I had a detailed conversation with him and his . He wishes to pursue outpatient cardiology consultation in [place] so that testing and follow up may be possible in a more expeditious manner. I will seek to arrange this I see that Dr Phoenix has started digoxin . The patient states that he feels better with the digoxin. Emigdio Melgar MD
--- NOTE | 2017-06-17 14:28 | ECHO ---
EXAM DATE: 06/15/17 PATIENT'S AGE: 42 The echocardiogram report can be seen in this patient's EMR (Electronic Medical Record) in the Reports section. The report has also been scanned into PACS. LASHAY
--- NOTE | 2017-06-17 16:40 | PCM.PN ---
- General Info Date of Service: 06/17/17 Admission Dx/Problem (Free Text): 42M with tachycardia palpitation, most likely atypical aflutter Subjective Update: patient still in and out of aflutter, got cardizem 360 this morning and lopressor, digoxin was given 250 IV Functional Status: Reports: Pain Controlled - Review of Systems General: Reports: No Symptoms HEENT: Reports: No Symptoms Pulmonary: Reports: No Symptoms Cardiovascular: Reports: No Symptoms Gastrointestinal: Reports: No Symptoms Genitourinary: Reports: No Symptoms Musculoskeletal: Reports: No Symptoms Skin: Reports: No Symptoms Neurological: Reports: No Symptoms. Denies: Paresthesia Psychiatric: Reports: No Symptoms - Patient Data Vitals - Most Recent: Last Vital Signs Temp 37.1 C 06/17/17 12:00 Pulse 105 H 06/17/17 16:05 Resp 20 06/17/17 12:00 BP 150/68 H 06/17/17 12:00 Pulse Ox 96 06/17/17 12:00 Weight - Most Recent: 91.308 kg I&O - Last 24 Hours: Intake & Output 06/17/17 06/17/17 06/17/17 06:59 14:59 22:59 Intake Total 680 1340 Output Total 720 Balance -40 1340 Med Orders - Current: Current Medications Acetaminophen (Tylenol) 650 mg PO Q4H PRN PRN Reason: Pain (Mild 1-3)/fever Apixaban (Eliquis) 5 mg PO BID [facility] Bisacodyl (Dulcolax) 5 mg PO DAILY PRN PRN Reason: Constipation Digoxin (Lanoxin) 250 mcg IVPUSH Q2H [facility] Stop: 06/17/17 17:16 Last Admin: 06/17/17 16:05 Dose: 250 mcg Digoxin (Lanoxin) 250 mcg PO DAILY [facility] Diltiazem HCl (Cardizem Cd) 360 mg PO DAILY [facility] Last Admin: 06/17/17 08:12 Dose: 360 mg Gabapentin (Neurontin) 600 mg PO TID [facility] Last Admin: 06/17/17 14:03 Dose: 600 mg Metoprolol Tartrate (Lopressor) 5 mg IVPUSH Q4H PRN PRN Reason: Other Last Admin: 06/17/17 09:02 Dose: 5 mg Nicotine (Habitrol) 21 mg TRDERM DAILY [facility] Last Admin: 06/17/17 08:14 Dose: 21 mg Ondansetron HCl (Zofran Odt) 4 mg PO Q4H PRN PRN Reason: nausea, able to take PO Sodium Chloride (Saline Flush) 10 ml FLUSH ASDIRECTED PRN PRN Reason: Keep Vein Open Last Admin: 06/15/17 12:27 Dose: 10 ml Sodium Chloride (Saline Flush) 2.5 ml FLUSH ASDIRECTED PRN PRN Reason: Keep Vein Open Last Admin: 06/15/17 12:27 Dose: 2.5 ml Temazepam (Restoril) 15 mg PO BEDTIME PRN PRN Reason: Sleep Discontinued Medications Adenosine (Adenocard) 6 mg IVPUSH NOW ONE Stop: 06/15/17 11:48 Last Admin: 06/15/17 12:28 Dose: 6 mg Adenosine (Adenocard) Confirm Administered Dose 18 mg .ROUTE .STK-MED ONE Stop: 06/15/17 11:49 Last Admin: 06/15/17 12:29 Dose: 12 mg Adenosine (Adenocard) 12 mg IVPUSH NOW ONE Stop: 06/15/17 13:28 Last Admin: 06/15/17 13:28 Dose: 12 mg Aspirin (Aspirin) 324 mg PO ONETIME ONE Stop: 06/15/17 11:44 Last Admin: 06/15/17 12:24 Dose: 324 mg Diltiazem HCl (Diltiazem) Confirm Administered Dose 25 mg .ROUTE .STK-MED ONE Stop: 06/15/17 11:56 Last Admin: 06/15/17 12:29 Dose: 25 mg Diltiazem HCl (Cardizem Cd) 240 mg PO ONETIME ONE Stop: 06/15/17 12:40 Last Admin: 06/15/17 14:25 Dose: Not Given Diltiazem HCl (Cardizem Cd) 240 mg PO ONETIME ONE Stop: 06/15/17 14:21 Last Admin: 06/15/17 14:36 Dose: 240 mg Diltiazem HCl (Diltiazem) 25 mg IVPUSH ONETIME ONE Stop: 06/15/17 14:47 Last Admin: 06/15/17 14:48 Dose: 25 mg Diltiazem HCl (Cardizem Cd) 240 mg PO DAILY [facility] Last Admin: 06/16/17 09:21 Dose: 240 mg Diltiazem HCl (Cardizem Cd) 180 mg PO ONETIME ONE Stop: 06/16/17 18:31 Last Admin: 06/16/17 18:42 Dose: 180 mg Enoxaparin Sodium (Lovenox) 40 mg SUBCUT DAILY [facility] Last Admin: 06/17/17 08:13 Dose: 40 mg Famotidine (Pepcid) 20 mg IVPUSH ONETIME ONE Stop: 06/15/17 11:44 Last Admin: 06/15/17 12:25 Dose: 20 mg Lorazepam (Ativan) Confirm Administered Dose 2 mg .ROUTE .STK-MED ONE Stop: 06/15/17 12:00 Last Admin: 06/15/17 12:02 Dose: Not Given Lorazepam (Ativan) 1 mg IVPUSH ONETIME ONE Stop: 06/15/17 12:02 Last Admin: 06/15/17 12:30 Dose: 1 mg Metoprolol Succinate (Toprol Xl) 50 mg PO ONETIME ONE Stop: 06/17/17 09:05 Last Admin: 06/17/17 09:57 Dose: 50 mg Morphine Sulfate (Morphine) 2 mg IVPUSH Q2H PRN PRN Reason: Pain (severe 7-10) Stop: 06/16/17 16:06 Nicotine (Habitrol) 21 mg TRDERM DAILY [facility] Last Admin: 06/15/17 20:19 Dose: Not Given Nitroglycerin (Nitrostat) 0.4 mg SL ONETIME ONE Stop: 06/15/17 11:44 Last Admin: 06/15/17 12:28 Dose: Not Given - Exam General: Alert, Oriented HEENT: Pupils Equal, Pupils Reactive Neck: Supple Lungs: Clear to Auscultation Cardiovascular: Regular Rate, Regular Rhythm GI/Abdominal Exam: Normal Bowel Sounds, Soft, No Distention, No Abnormal Bruit (Male) Exam: No Hernia, Normal Inspection Back Exam: Normal Inspection EKG INTERPRETATION Rhythm: NSR - Problem List Review Problem List Initiated/Reviewed/Updated: Yes - My Orders Last 24 Hours: My Active Orders 06/17/17 11:15 Digoxin [Lanoxin] 250 mcg IVPUSH Q2H 06/17/17 11:42 EKG Documentation Completion [RC] STAT 06/17/17 21:00 Apixaban [Eliquis] 5 mg PO BID 06/18/17 09:00 Digoxin [Lanoxin] 250 mcg PO DAILY - Plan Plan:: 42M with Paflutter 1. 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 Villagomez for outpt appointment, he recommended that he could get him in in the next 2 months , he also recommended to start ATC for ablation. Patient is in and out of tachycardia, his [id number] = o, technically group home he only needs ASA, but we will prepare him for ablation, will start him on elinquis 5 BID. 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 - EPS outpt - continue cardizem 360 daily - loading digoxin 250 IV q2 x 4, then digoxin 250 PO daily tomorrow. - elinquis [address] depression while tachycardia with chest pressure symtpoms, he will have stress test next Thursday as outpt.
[2017-06-17] MEDS: Apixaban 5 MG Tab PO SCH (21:19)
[2017-06-18] MEDS: Gabapentin 300 MG Cap PO SCH (06:15)
--- NOTE | 2017-06-18 08:34 | PCM.DCSUM1 ---
Discharge Summary - Hospital Course Brief History: He was admitted with SVT . - Discharge Data Discharge Date: 06/18/17 Discharge Disposition: Home, Self-Care 01 Condition: Good - Patient Summary/Data Consults: Consultations 06/16/17 14:30 Consult to Physician [CONS] Urgent Hospital Course: 42 yo male who was admitted for superventricular tachycardia. He presented with chest pressure and palpitations. On EKG his heart rate was 202. He was placed rate controlling medications with resolution of chest pain. Dr. Dennis was consulted and recommended diltiazem, digoxin for rate control and Eliquis for stroke prevention. Echocardiogram reported left ventricular ejection fraction of 63%. He is being discharged today and will have follow up with his PCP, cardiology and neurology. - Patient Instructions Diet: Regular Diet as Tolerated Activity: As Tolerated - Discharge Plan Prescriptions/Med Rec: Apixaban [Eliquis] 5 mg PO BID #60 tablet Digoxin [Lanoxin] 250 mcg PO DAILY #30 tablet Diltiazem HCl [Diltiazem 24Hr Cd] 360 mg PO DAILY #30 cap.er.24h Gabapentin [Neurontin] 600 mg PO TID #90 cap Home Medications: Home Meds Colesevelam [Welchol] PO BID 06/15/17 [History] Gabapentin [Neurontin] 600 mg PO TID #90 cap 06/16/17 [Rx] Apixaban [Eliquis] 5 mg PO BID #60 tablet 06/18/17 [Rx] Digoxin [Lanoxin] 250 mcg PO DAILY #30 tablet 06/18/17 [Rx] Diltiazem HCl [Diltiazem 24Hr Cd] 360 mg PO DAILY #30 cap.er.24h 06/18/17 [Rx] Patient Handouts: Gabapentin capsules or tablets, Aspirin, ASA oral tablets, Diltiazem tablets Referrals: Ekaterina Wills MD [Physician] - 06/23/17 9:30 am Mena Bowman MD [Physician] - 07/16/17 2:00 pm Katelyn bAbasi DO [Primary Care Provider] - 07/01/17 10:00 am - Patient Data Vitals - Most Recent: Last Vital Signs Temp 35.5 C 06/18/17 04:00 Pulse 68 06/18/17 04:00 Resp 18 06/18/17 04:00 BP 106/57 L 06/18/17 04:00 Pulse Ox 97 06/18/17 04:00 Weight - Most Recent: 91.308 kg I&O - Last 24 hours: Intake & Output 06/17/17 06/18/17 06/18/17 22:59 06:59 14:59 Intake Total 1340 400 Output Total 1 Balance 1340 399 Med Orders - Current: Current Medications Acetaminophen (Tylenol) 650 mg PO Q4H PRN PRN Reason: Pain (Mild 1-3)/fever Apixaban (Eliquis) 5 mg PO BID [facility] Last Admin: 06/17/17 21:19 Dose: 5 mg Bisacodyl (Dulcolax) 5 mg PO DAILY PRN PRN Reason: Constipation Digoxin (Lanoxin) 250 mcg PO DAILY [facility] Diltiazem HCl (Cardizem Cd) 360 mg PO DAILY [facility] Last Admin: 06/17/17 08:12 Dose: 360 mg Gabapentin (Neurontin) 600 mg PO TID [facility] Last Admin: 06/18/17 06:15 Dose: 600 mg Metoprolol Tartrate (Lopressor) 5 mg IVPUSH Q4H PRN PRN Reason: Other Last Admin: 06/17/17 09:02 Dose: 5 mg Nicotine (Habitrol) 21 mg TRDERM DAILY [facility] Last Admin: 06/17/17 08:14 Dose: 21 mg Ondansetron HCl (Zofran Odt) 4 mg PO Q4H PRN PRN Reason: nausea, able to take PO Sodium Chloride (Saline Flush) 10 ml FLUSH ASDIRECTED PRN PRN Reason: Keep Vein Open Last Admin: 06/15/17 12:27 Dose: 10 ml Sodium Chloride (Saline Flush) 2.5 ml FLUSH ASDIRECTED PRN PRN Reason: Keep Vein Open Last Admin: 06/15/17 12:27 Dose: 2.5 ml Temazepam (Restoril) 15 mg PO BEDTIME PRN PRN Reason: Sleep Discontinued Medications Adenosine (Adenocard) 6 mg IVPUSH NOW ONE Stop: 06/15/17 11:48 Last Admin: 06/15/17 12:28 Dose: 6 mg Adenosine (Adenocard) Confirm Administered Dose 18 mg .ROUTE .STK-MED ONE Stop: 06/15/17 11:49 Last Admin: 06/15/17 12:29 Dose: 12 mg Adenosine (Adenocard) 12 mg IVPUSH NOW ONE Stop: 06/15/17 13:28 Last Admin: 06/15/17 13:28 Dose: 12 mg Aspirin (Aspirin) 324 mg PO ONETIME ONE Stop: 06/15/17 11:44 Last Admin: 06/15/17 12:24 Dose: 324 mg Digoxin (Lanoxin) 250 mcg IVPUSH Q2H [facility] Stop: 06/17/17 17:16 Last Admin: 06/17/17 17:43 Dose: 250 mcg Diltiazem HCl (Diltiazem) Confirm Administered Dose 25 mg .ROUTE .STK-MED ONE Stop: 06/15/17 11:56 Last Admin: 06/15/17 12:29 Dose: 25 mg Diltiazem HCl (Cardizem Cd) 240 mg PO ONETIME ONE Stop: 06/15/17 12:40 Last Admin: 06/15/17 14:25 Dose: Not Given Diltiazem HCl (Cardizem Cd) 240 mg PO ONETIME ONE Stop: 06/15/17 14:21 Last Admin: 06/15/17 14:36 Dose: 240 mg Diltiazem HCl (Diltiazem) 25 mg IVPUSH ONETIME ONE Stop: 06/15/17 14:47 Last Admin: 06/15/17 14:48 Dose: 25 mg Diltiazem HCl (Cardizem Cd) 240 mg PO DAILY [facility] Last Admin: 06/16/17 09:21 Dose: 240 mg Diltiazem HCl (Cardizem Cd) 180 mg PO ONETIME ONE Stop: 06/16/17 18:31 Last Admin: 06/16/17 18:42 Dose: 180 mg Enoxaparin Sodium (Lovenox) 40 mg SUBCUT DAILY [facility] Last Admin: 06/17/17 08:13 Dose: 40 mg Famotidine (Pepcid) 20 mg IVPUSH ONETIME ONE Stop: 06/15/17 11:44 Last Admin: 06/15/17 12:25 Dose: 20 mg Lorazepam (Ativan) Confirm Administered Dose 2 mg .ROUTE .STK-MED ONE Stop: 06/15/17 12:00 Last Admin: 06/15/17 12:02 Dose: Not Given Lorazepam (Ativan) 1 mg IVPUSH ONETIME ONE Stop: 06/15/17 12:02 Last Admin: 06/15/17 12:30 Dose: 1 mg Metoprolol Succinate (Toprol Xl) 50 mg PO ONETIME ONE Stop: 06/17/17 09:05 Last Admin: 06/17/17 09:57 Dose: 50 mg Morphine Sulfate (Morphine) 2 mg IVPUSH Q2H PRN PRN Reason: Pain (severe 7-10) Stop: 06/16/17 16:06 Nicotine (Habitrol) 21 mg TRDERM DAILY [facility] Last Admin: 06/15/17 20:19 Dose: Not Given Nitroglycerin (Nitrostat) 0.4 mg SL ONETIME ONE Stop: 06/15/17 11:44 Last Admin: 06/15/17 12:28 Dose: Not Given *Q Meaningful Use (DIS) - VTE *Q VTE Criteria *Q: - Stroke *Q Stroke Criteria *Q: - AMI *Q AMI Criteria *Q:
[2017-06-18] MEDS: Diltiazem 120 MG Cap.CD PO SCH (09:00)
[2017-06-18] MEDS ORDERED: Digoxin 250 MCG Tab PO SCH (09:00)
[2017-06-18] MEDS: Apixaban 5 MG Tab PO SCH (09:02)
[2017-06-18] MEDS: Nicotine 21 MG/24 Hr Patch TRDERM SCH (09:02)
[2017-06-18 09:04] VITALS: BP 132/75
--- NOTE | 2017-06-18 10:06 | PCM.PN ---
- General Info Date of Service: 06/18/17 Admission Dx/Problem (Free Text): 42M with tachycardia palpitation, most likely atypical aflutter Subjective Update: patient felt better, still in and out from aflutter, peak HR better in 110-120 - Review of Systems General: Reports: No Symptoms HEENT: Reports: No Symptoms Pulmonary: Reports: No Symptoms Cardiovascular: Reports: Palpitations Gastrointestinal: Reports: No Symptoms Genitourinary: Reports: No Symptoms Musculoskeletal: Reports: No Symptoms Skin: Reports: No Symptoms Neurological: Reports: No Symptoms Psychiatric: Reports: No Symptoms - Patient Data Vitals - Most Recent: Last Vital Signs Temp 36.4 C 06/18/17 08:00 Pulse 65 06/18/17 09:01 Resp 20 06/18/17 08:00 BP 132/75 06/18/17 09:00 Pulse Ox 97 06/18/17 08:00 Weight - Most Recent: 91.308 kg I&O - Last 24 Hours: Intake & Output 06/17/17 06/18/17 06/18/17 22:59 06:59 14:59 Intake Total 1340 400 Output Total 1 Balance 1340 399 Med Orders - Current: Current Medications Acetaminophen (Tylenol) 650 mg PO Q4H PRN PRN Reason: Pain (Mild 1-3)/fever Apixaban (Eliquis) 5 mg PO BID [facility] Last Admin: 06/18/17 09:02 Dose: 5 mg Bisacodyl (Dulcolax) 5 mg PO DAILY PRN PRN Reason: Constipation Digoxin (Lanoxin) 250 mcg PO DAILY [facility] Last Admin: 06/18/17 09:01 Dose: 250 mcg Diltiazem HCl (Cardizem Cd) 360 mg PO DAILY [facility] Last Admin: 06/18/17 09:00 Dose: 360 mg Gabapentin (Neurontin) 600 mg PO TID [facility] Last Admin: 06/18/17 06:15 Dose: 600 mg Metoprolol Tartrate (Lopressor) 5 mg IVPUSH Q4H PRN PRN Reason: Other Last Admin: 06/17/17 09:02 Dose: 5 mg Nicotine (Habitrol) 21 mg TRDERM DAILY [facility] Last Admin: 06/18/17 09:02 Dose: 21 mg Ondansetron HCl (Zofran Odt) 4 mg PO Q4H PRN PRN Reason: nausea, able to take PO Sodium Chloride (Saline Flush) 10 ml FLUSH ASDIRECTED PRN PRN Reason: Keep Vein Open Last Admin: 06/15/17 12:27 Dose: 10 ml Sodium Chloride (Saline Flush) 2.5 ml FLUSH ASDIRECTED PRN PRN Reason: Keep Vein Open Last Admin: 06/15/17 12:27 Dose: 2.5 ml Temazepam (Restoril) 15 mg PO BEDTIME PRN PRN Reason: Sleep Discontinued Medications Adenosine (Adenocard) 6 mg IVPUSH NOW ONE Stop: 06/15/17 11:48 Last Admin: 06/15/17 12:28 Dose: 6 mg Adenosine (Adenocard) Confirm Administered Dose 18 mg .ROUTE .STK-MED ONE Stop: 06/15/17 11:49 Last Admin: 06/15/17 12:29 Dose: 12 mg Adenosine (Adenocard) 12 mg IVPUSH NOW ONE Stop: 06/15/17 13:28 Last Admin: 06/15/17 13:28 Dose: 12 mg Aspirin (Aspirin) 324 mg PO ONETIME ONE Stop: 06/15/17 11:44 Last Admin: 06/15/17 12:24 Dose: 324 mg Digoxin (Lanoxin) 250 mcg IVPUSH Q2H [facility] Stop: 06/17/17 17:16 Last Admin: 06/17/17 17:43 Dose: 250 mcg Diltiazem HCl (Diltiazem) Confirm Administered Dose 25 mg .ROUTE .STK-MED ONE Stop: 06/15/17 11:56 Last Admin: 06/15/17 12:29 Dose: 25 mg Diltiazem HCl (Cardizem Cd) 240 mg PO ONETIME ONE Stop: 06/15/17 12:40 Last Admin: 06/15/17 14:25 Dose: Not Given Diltiazem HCl (Cardizem Cd) 240 mg PO ONETIME ONE Stop: 06/15/17 14:21 Last Admin: 06/15/17 14:36 Dose: 240 mg Diltiazem HCl (Diltiazem) 25 mg IVPUSH ONETIME ONE Stop: 06/15/17 14:47 Last Admin: 06/15/17 14:48 Dose: 25 mg Diltiazem HCl (Cardizem Cd) 240 mg PO DAILY [facility] Last Admin: 06/16/17 09:21 Dose: 240 mg Diltiazem HCl (Cardizem Cd) 180 mg PO ONETIME ONE Stop: 06/16/17 18:31 Last Admin: 06/16/17 18:42 Dose: 180 mg Enoxaparin Sodium (Lovenox) 40 mg SUBCUT DAILY [facility] Last Admin: 06/17/17 08:13 Dose: 40 mg Famotidine (Pepcid) 20 mg IVPUSH ONETIME ONE Stop: 06/15/17 11:44 Last Admin: 06/15/17 12:25 Dose: 20 mg Lorazepam (Ativan) Confirm Administered Dose 2 mg .ROUTE .STK-MED ONE Stop: 06/15/17 12:00 Last Admin: 06/15/17 12:02 Dose: Not Given Lorazepam (Ativan) 1 mg IVPUSH ONETIME ONE Stop: 06/15/17 12:02 Last Admin: 06/15/17 12:30 Dose: 1 mg Metoprolol Succinate (Toprol Xl) 50 mg PO ONETIME ONE Stop: 06/17/17 09:05 Last Admin: 06/17/17 09:57 Dose: 50 mg Morphine Sulfate (Morphine) 2 mg IVPUSH Q2H PRN PRN Reason: Pain (severe 7-10) Stop: 06/16/17 16:06 Nicotine (Habitrol) 21 mg TRDERM DAILY [facility] Last Admin: 06/15/17 20:19 Dose: Not Given Nitroglycerin (Nitrostat) 0.4 mg SL ONETIME ONE Stop: 06/15/17 11:44 Last Admin: 06/15/17 12:28 Dose: Not Given - Exam General: Alert, Oriented HEENT: Pupils Equal Neck: Supple Lungs: Clear to Auscultation Cardiovascular: Regular Rate, Regular Rhythm GI/Abdominal Exam: Normal Bowel Sounds (Male) Exam: No Hernia, Normal Inspection Back Exam: Normal Inspection Extremities: Normal Inspection EKG INTERPRETATION Rhythm: NSR - Problem List Review Problem List Initiated/Reviewed/Updated: Yes - My Orders Last 24 Hours: My Active Orders 06/17/17 11:42 EKG Documentation Completion [RC] STAT 06/17/17 21:00 Apixaban [Eliquis] 5 mg PO BID 06/18/17 09:00 Digoxin [Lanoxin] 250 mcg PO DAILY - Plan Plan:: 42M with Paflutter 1. 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 Villagomez for outpt appointment, he recommended that he could get him in in the next 2 months , he also recommended to start ATC for ablation. Patient is in and out of tachycardia, his [id number] = o, technically intermediate he only needs ASA, but we will prepare him for ablation, will start him on elinquis 5 BID. 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 - EPS outpt - continue cardizem 360 daily, digoxin 250 daily - elinquis [address] depression while tachycardia with chest pressure symptoms, he will have stress test next Thursday as outpt.
== END 2017-06-18 12:10 | disposition home or self-care (01) ==
LOC: MW.ED 11:30 → MW.MS 12:41
PROVIDERS: ADMIT Family Medicine; ATTEND Family Medicine
DX: I47.1 Supraventricular tachycardia (principal); E78.00 Pure hypercholesterolemia, unspecified; G47.00 Insomnia, unspecified; K57.30 Diverticulosis of large intestine without perforation or abscess without bleeding; F17.210 Nicotine dependence, cigarettes, uncomplicated; Z98.890 Other specified postprocedural states; Z79.899 Other long term (current) drug therapy; R56.9 Unspecified convulsions
CPT/HCPCS: 36415; 71010; 80048; 80053; 81001; 82150; 83690; 83735; 84439; 84443; 84484; 85025; 85610; 93005; 93306; 96372; 96374; 96375; 96376; 99285; A9270; G0378; J0153; J1160; J1650; J2060; J3490; 99283